=== PATIENT | female | born 1965 | race Caucasian/White ===

== ENCOUNTER 2016-10-16 17:49 | Emergency (ER) | payer BC, OTHER ==
[2016-10-16 18:14] VITALS: BP 142/73
[2016-10-16] MEDS ORDERED: DOXYcycline CAP(*) 100 MG PO ONE (19:01)
--- NOTE | 2016-10-16 19:07 | UC ---
Skin Complaint HPI - HPI Summary HPI Summary: Saw spot on L upper leg 2 days ago, thought it was a scab, realized today it was a tick and pulled it out. - History of Current Complaint Chief Complaint: UCSkin Time Seen by Provider: 10/16/16 18:49 Stated Complaint: TICK BITE Hx Obtained From: Patient Hx Last Menstrual Period: 2 months ago ?: No Onset/Duration: Sudden Onset Skin Exposure Onset/Duration: Days Ago Timing: Constant Onset Severity: Mild Current Severity: Mild Location: Discrete Character: Redness Aggravating: Nothing Alleviating: Nothing Associated Signs & Symptoms: Positive: Negative Related History: Insect Bite/Sting - Allergy/Home Medications Allergies/Adverse Reactions: Allergies Allergy/AdvReac Type Severity Reaction Status Date / Time Psyllium [From Metamucil] Allergy Itching Verified 10/16/16 18:10 Home Medications: Home Medications NK [No Home Medications Reported] 10/16/16 [History Confirmed 10/16/16] Review of Systems Constitutional: Negative Skin: Other - L leg tick Eyes: Negative ENT: Negative Respiratory: Negative Cardiovascular: Negative Gastrointestinal: Negative Genitourinary: Negative Motor: Negative Neurovascular: Negative Musculoskeletal: Negative Neurological: Negative Psychological: Negative All Other Systems Reviewed And Are Negative: Yes PMH/Surg Hx/FS Hx/Imm Hx Previously Healthy: Yes Cancer History Of: Denies: Breast Cancer - Surgical History Surgical History: Yes Surgery Procedure, Year, and Place: varicose vein surgery, breast biopsy - Family History Known Family History: Positive: Hypertension - Social History Alcohol Use: Rare Substance Use Type: None Smoking Status (MU): Former Smoker - Immunization History Most Recent Influenza Vaccination: none Physical Exam Triage Information Reviewed: Yes Appearance: Well-Appearing, No Pain Distress, Well-Nourished Vital Signs: Initial Vital Signs Temp 98.2 F 10/16/16 18:11 Pulse 101 10/16/16 18:11 Resp 16 10/16/16 18:11 BP 142/73 10/16/16 18:11 Pulse Ox 96 10/16/16 18:11 Vital Signs Reviewed: Yes Eye Exam: Normal Eyes: Positive: Conjunctiva Clear ENT Exam: Normal ENT: Positive: Normal ENT inspection, Hearing grossly normal, Pharynx normal, TMs normal Dental Exam: Normal Neck exam: Normal Neck: Positive: Supple, Nontender, No Lymphadenopathy Respiratory Exam: Normal Respiratory: Positive: Chest non-tender, Lungs clear, Normal breath sounds, No respiratory distress, No accessory muscle use Cardiovascular Exam: Normal Cardiovascular: Positive: RRR, No Murmur Musculoskeletal Exam: Normal Neurological Exam: Normal Neurological: Positive: Alert Psychological Exam: Normal Skin Exam: Other - L thigh tick bite site typical, does have very faint red area around, approx 2.5cm in diameter. Course/Dx - Diagnoses Provider Diagnoses: Tick bite Discharge - Discharge Plan Condition: Stable Disposition: HOME Patient Education Materials: Tick Bite (ED) Referrals: Trae Vega MD [Primary Care Provider] - Additional Instructions: If you develop any of the following, please see your physician promptly: (1) Fever, chills, or generalized malaise associated with a headache. (2) A red round area at the site of the bite (or elsewhere) (3) Joint pain, joint swelling or generalized weakness. (4) Redness, swelling, or drainage at the site of the bite. Check yourself, your children and your pets for ticks whenever you've been in an area where ticks live. To remove a tick, grasp it firmly with some tweezers or a string in a slipknot as close to its head as possible and pull it steadily. Ticks do not have a typical "head" attached to their body. There are mouth parts sticking out which they use to feed. If there are mouth parts left behind in the wound there is NO increased risk of Lyme infection; however, the chances of a bacterial skin infection (cellulitis) are higher. If mouth parts remain after tick removal, the best thing to do is apply warm soaks to the area 3-4 times per day to encourage the skin to expel the foreign material. DOXYCYCLINE: Doxycycline (Vibramycin, Doryx) is an antibiotic of the tetracycline family. This type of drug is useful for infections of the respiratory tract and genital tract, and is sometimes used for intestinal infections. Unlike most tetracyclines, doxycycline can be taken with food. It is longer acting, and (usually) less prone to side effects than regular tetracycline. Tetracycline antibiotics can stain immature teeth and SHOULD NOT BE TAKEN BY CHILDREN, NURSING MOTHERS, OR WOMEN. Tetracyclines can make you more prone to sunburn. Abdominal cramping, nausea, and diarrhea are occasional side effects. Women may experience vaginal yeast infections. Call the doctor at once if you develop hives, itching, shortness of breath , or lightheadedness. WHEN A TICK IS NOT ENGORGED AND HAS BEEN ON LESS THAN 24 HOURS - THE RISK FOR LYME IS NEGLIGIBLE. YOU CAN REMOVE THE TICK AND OBSERVE THE AREA ON YOUR OWN. FOLLOW-UP CARE: You should contact your private physician for follow-up care if you develop spreading redness near the site of the bite or on any other areas of the body. If you are unable to get a timely appointment, or if you are worsening, call us or return for re-evaluation.
== END 2016-10-16 19:08 | disposition home or self-care (01) ==
LOC: UCEAST 17:49
DX: S70.362A Insect bite (nonvenomous), left thigh, initial encounter (principal); W57.XXXA Bitten or stung by nonvenomous insect and other nonvenomous arthropods, initial encounter; Y93.9 Activity, unspecified; Y92.9 Unspecified place or not applicable; Z87.891 Personal history of nicotine dependence
CPT/HCPCS: 99212; A9270-GY; G0463

== ENCOUNTER 2018-06-10 16:15 | Emergency (ER) | payer BC ==
[2018-06-10 16:26] VITALS: BP 149/91
[2018-06-10] MEDS ORDERED: Acetaminophen TAB* 325 MG PO ONE (16:29)
--- NOTE | 2018-06-10 16:35 | UC ---
Throat Pain/Nasal Jose HPI - HPI Summary HPI Summary: 52-year-old woman who 52-year-old woman comes in with a chief complaint of sore throat runny nose and dry cough. It's been going on about a week. Sore throats it worse. Swallowing makes the pain worse acetaminophen makes the pain better. Chest congestion. No recent fevers. Her last couple of days patient has noticed increasing left ear pain. She has also noticed some crusting and discharge and redness of the left eye. - History of Current Complaint Chief Complaint: UCGeneralIllness Stated Complaint: SORE THROAT Time Seen by Provider: 06/10/18 16:19 Hx Last Menstrual Period: 2 months ago Pain Intensity: 6 - Allergies/Home Medications Allergies/Adverse Reactions: Allergies Allergy/AdvReac Type Severity Reaction Status Date / Time Psyllium [From Metamucil] Allergy Itching Verified 10/16/16 18:10 Home Medications: Home Medications Acetaminophen [Pain Reliever] 1,000 mg PO ONCE 06/10/18 [History Confirmed 06/10] GuaiFENesin DM* [Robitussin DM*] 10 ml PO ONCE 06/10/18 [History Confirmed 06/10] PMH/Surg Hx/FS Hx/Imm Hx Previously Healthy: Yes - Surgical History Surgical History: Yes Surgery Procedure, Year, and Place: varicose vein surgery, breast biopsy - Family History Known Family History: Positive: Hypertension - Social History Alcohol Use: Rare Substance Use Type: None Smoking Status (MU): Former Smoker - Immunization History Most Recent Influenza Vaccination: none Review of Systems All Other Systems Reviewed And Are Negative: Yes Constitutional: Positive: Negative Skin: Positive: Negative Eyes: Positive: Negative ENT: Positive: Sore Throat, Ear Ache, Nasal Discharge Respiratory: Positive: Negative, Cough Cardiovascular: Positive: Negative Gastrointestinal: Positive: Negative Motor: Positive: Negative Neurovascular: Positive: Negative Musculoskeletal: Positive: Negative Neurological: Positive: Negative Psychological: Positive: Negative Is Patient Immunocompromised?: No Physical Exam Triage Information Reviewed: Yes Appearance: No Pain Distress, Well-Nourished, Ill-Appearing - MILD Vital Signs: Initial Vital Signs Temp 98.2 F 06/10/18 16:19 Pulse 85 06/10/18 16:19 Resp 17 06/10/18 16:19 BP 149/91 06/10/18 16:19 Pulse Ox 98 06/10/18 16:19 Vital Signs Reviewed: Yes Eye Exam: Normal Eyes: Positive: Conjunctiva Inflamed - LEFT ENT: Positive: Pharyngeal erythema, Nasal congestion, Nasal drainage, TM dull - LEFT Neck exam: Normal Neck: Positive: Supple Respiratory: Positive: Lungs clear, Normal breath sounds, No respiratory distress Cardiovascular: Positive: RRR Musculoskeletal Exam: Normal Musculoskeletal: Positive: Strength Intact, ROM Intact Neurological Exam: Normal Neurological: Positive: Alert, Muscle Tone Normal Psychological Exam: Normal Psychological: Positive: Age Appropriate Behavior Skin Exam: Normal Throat Pain/Nasal Course/Dx - Course Course Of Treatment: Patient's had her symptoms patient has had her symptoms for almost a week now. We discussed viral and bacterial infections and the role of antibiotics. Rapid strep is negative. Patient prefers to not be on antibiotics at this time. She will get rechecked if things persist or they get worse. - Differential Dx/Diagnosis Provider Diagnosis: Pharyngitis, Conjunctivitis, Acute serous otitis media of left ear Discharge - Sign-Out/Discharge Documenting (check all that apply): Patient Departure All imaging exams completed and their final reports reviewed: No Studies - Discharge Plan Condition: Stable Disposition: HOME Patient Education Materials: Pharyngitis (ED), Serous Otitis Media (ED), Conjunctivitis (ED) Referrals: [facility] [place] [facility] [Outside] Additional Instructions: FOLLOW UP WITH YOUR DOCTOR IF NOT COMPLETELY IMPROVED. GET RECHECKED FOR ANY WORSENING OF YOUR CONDITION OR QUESTIONS OR CONCERNS. - Billing Disposition and Condition Condition: STABLE Disposition: Home
== END 2018-06-10 17:00 | disposition home or self-care (01) ==
LOC: UCEAST 16:15
DX: J02.9 Acute pharyngitis, unspecified (principal); H10.9 Unspecified conjunctivitis; H65.02 Acute serous otitis media, left ear; Z88.8 Allergy status to other drugs, medicaments and biological substances; Z87.891 Personal history of nicotine dependence
CPT/HCPCS: 87651; 99211; A9270-GY; G0463

== ENCOUNTER 2019-07-10 08:53 | Emergency (ER) | payer BC ==
--- OUTSIDE RECORDS SUMMARY | 2019-07-10 08:57 | XMS REPORT | Continuity of Care Document ---
:1965 External Reference #:[id number] Author Name Gigi Lauren NP (transmitted by agent of provider Jud Ruiz) Address [address], [address] [place] [id number] Care Team Providers Name Role Phone Meghana Brooks MD - Internal Care Team Information Yield Analyst Medicine Problems Description No Information Available Social History Type Date Description Comments Sex Unknown ETOH Use Occasionally consumes alcohol Tobacco Use Start: Unknown End: Patient is a former started smoking at Unknown smoker 16 quit at age of 30, smoked a pack a day Smoking Status Reviewed: 05/18/19 Patient is a former started smoking at smoker 16 quit at age of 30, smoked a pack a day Exercise Exercises rarely Type/Frequency Allergies, Adverse Reactions, Alerts Active Allergies Reaction Severity Comments Date Metamucil itchy ear, eyes, throat 12/22/2017 Nettie Meal itchy ear, eyes, throat 12/22/2017 Hay Fever sneezing, itchy eyes 12/22/2017 Medications Description No Active Medications Immunizations Description No Information Available Vital Signs Date Vital Result Comment 05/18/2019 1:03pm Height 63 inches 5'3" per pt Weight 168.12 lb Heart Rate 88 /min BP Systolic 135 mmHg BP Diastolic 86 mmHg Body Temperature 98.4 F O2 % BldC Oximetry 99 % BMI (Body Mass Index) 29.8 kg/m2 04/26/2018 2:42pm Height 63 inches 5'3" per pt Weight 169.00 lb Heart Rate 73 /min BP Systolic 122 mmHg BP Diastolic 75 mmHg Body Temperature 97.5 F O2 % BldC Oximetry 98 % BMI (Body Mass Index) 29.9 kg/m2 Results Test Acquired Date Facility Test Result H/L Range Note Lipid Profile 05/09/2019 [facility] Triglycerides 208 mg/dL 1 (Trig/Chol/HDL) [address] [place] [address] [phone] Cholesterol 227 mg/dL 2 HDL Cholesterol 49.4 mg/dL 3 LDL Cholesterol 136 mg/dL 4 Laboratory test 05/09/2019 [facility] Glucose 80 mg/dL Normal 70-[address] [place] [address] [phone] 1 Desirable: <150 Borderline High: 150-199 High: 200-499 Very High: >500 2 Desirable: <200 Borderline High: 200-239 High: >239 3 Low: <40 Desirable: 40-60 High: >60 4 Desirable: <100 Near Optimal: 100-129 Borderline High: 130-159 High: 160-189 Very High: >189 Procedures Date Code Description Status 08/20/2018 [id number] Mammogram Completed Medical Devices Description No Information Available Encounters Description No Information Available Assessments Date Code Description Provider 05/18/2019 Z00.00 Encounter for general adult medical examination Gigi Lauren NP without abnormal findings 05/18/2019 E78.5 Hyperlipidemia, unspecified Gigi Lauren NP 05/18/2019 M25.50 Pain in unspecified joint Gigi Lauren NP Plan of Treatment Future Appointment(s):05/21/2020 3:00 pm - Gigi Lauren NP at [facility] Internal Medicine - [facility]05/18/2019 - Gigi Lauren NPZ00.00 Encounter for general adult medical examination without abnormal findingsComments:VACCINES:Flu shot every year in the fall.We do not have a record of your last tetanus vaccine. A booster is recommended every 10 years. Shingles: Shingrix recommended in all people over 50. This is available at pharmacies.SCREENING:Mammogram:Per gynColon cancer: Cologuard was negative this year. Repeat in three years.Pap: Per women's health.Cholesterol and fasting glucose yearly.E78.5 Hyperlipidemia, entnnhrriylY28.50 Pain in unspecified joint Functional Status Description No Information Available Mental Status Description No Information Available Referrals Description No Information Available
[2019-07-10 09:06] VITALS: BP 143/75
--- NOTE | 2019-07-10 09:22 | UC ---
Throat Pain/Nasal Jose HPI - HPI Summary HPI Summary: patient has had cold symps for 7-8 days and felt better until yesterday when she felt like a "Gil truck hit me". 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 - History of Current Complaint Chief Complaint: UCRespiratory Stated Complaint: SORE THROAT Time Seen by Provider: 07/10/19 08:58 Hx Obtained From: Patient Hx Last Menstrual Period: 2 months ago ?: No Onset/Duration: Sudden Onset Severity: Moderate Pain Intensity: 4 Cough: Nonproductive Associated Signs & Symptoms: Positive: Nasal Discharge - Allergies/Home Medications Allergies/Adverse Reactions: Allergies Allergy/AdvReac Type Severity Reaction Status Date / Time psyllium [From Metamucil] Allergy Itching Verified 07/10/19 09:04 PMH/Surg Hx/FS Hx/Imm Hx Previously Healthy: Yes - Surgical History Surgical History: Yes Surgery Procedure, Year, and Place: varicose vein surgery, breast biopsy - Family History Known Family History: Positive: Hypertension - Social History Occupation: Employed Full-time Lives: With Family Alcohol Use: Rare Substance Use Type: None Smoking Status (MU): Former Smoker When Did the Patient Quit Smoking/Using Tobacco: 15 yrs - Immunization History Most Recent Influenza Vaccination: none Review of Systems All Other Systems Reviewed And Are Negative: Yes Constitutional: Positive: Fever, Fatigue Skin: Positive: Negative. Negative: Rash ENT: Positive: Sore Throat, Ear Ache, Nasal Discharge, Sinus Congestion Respiratory: Positive: Cough. Negative: Shortness Of Breath Cardiovascular: Positive: Negative Gastrointestinal: Positive: Negative. Negative: Vomiting, Diarrhea, Nausea Musculoskeletal: Positive: Negative Neurological: Positive: Negative Psychological: Positive: Negative Is Patient Immunocompromised?: No Physical Exam Triage Information Reviewed: Yes Appearance: Well-Appearing, No Pain Distress, Well-Nourished Vital Signs: Initial Vital Signs Temp 98.3 F 07/10/19 09:00 Pulse 100 07/10/19 09:00 Resp 16 07/10/19 09:00 BP 143/75 07/10/19 09:00 Pulse Ox 96 07/10/19 09:00 Vital Signs Reviewed: Yes Eye Exam: Normal Eyes: Positive: Conjunctiva Clear ENT: Positive: Pharyngeal erythema, Nasal congestion, TM dull, Other - large amounbt white PND Neck exam: Normal Neck: Positive: Nontender, No Lymphadenopathy Respiratory Exam: Normal Respiratory: Positive: Lungs clear Cardiovascular Exam: Normal Musculoskeletal Exam: Normal Neurological Exam: Normal Psychological Exam: Normal Skin Exam: Normal Throat Pain/Nasal Course/Dx - Differential Dx/Diagnosis Differential Diagnosis/HQI/PQRI: Influenza, Otitis Media, Sinusitis, Tonsillitis , URI Provider Diagnosis: Sinusitis Discharge ED - Sign-Out/Discharge Documenting (check all that apply): Patient Departure All imaging exams completed and their final reports reviewed: No Studies - Discharge Plan Condition: Good Disposition: HOME Prescriptions: Cefdinir cap* [Cefdinir 300 MG cap (NF)] 300 mg PO BID #20 cap Patient Education Materials: Sinusitis (ED) Referrals: Gigi Lauren PUBLIC SERVICE DIRECTOR [Primary Care Provider] - 2 Days (if no better) Additional Instructions: drink plenty of fluids and rest take antibiotic as directed use your over the counter cold/sinus relief meds as directed - Billing Disposition and Condition Condition: GOOD Disposition: Home - Attestation Statements Provider Attestation: This patient was not seen by me. I was available for consult. Chart reviewed. PHYLLIS
[2019-07-10 09:36] LABS: Influenza A Molecular NEGATIVE (Negative); Influenza B Molecular NEGATIVE (Negative)
== END 2019-07-10 09:52 | disposition home or self-care (01) ==
LOC: UCEAST 08:53
DX: J32.9 Chronic sinusitis, unspecified (principal); H92.09 Otalgia, unspecified ear; R53.83 Other fatigue; Z88.8 Allergy status to other drugs, medicaments and biological substances; Z87.891 Personal history of nicotine dependence
CPT/HCPCS: 87651; 99212; G0463